=== PATIENT | female | born 1995 | race Caucasian/White ===

== ENCOUNTER 2021-06-01 12:52 | Emergency (ER) | payer OTHER ==
[2021-06-01 13:06] VITALS: BP 123/90; PULSE 91; TEMP 99.1; BMI 37.3
== END 2021-06-01 16:08 | disposition home or self-care (01) ==
LOC: FER 12:52
DX: M54.50 Low back pain, unspecified (principal); W18.2XXA Fall in (into) shower or empty bathtub, initial encounter
CPT/HCPCS: 72128-TC; 72131-TC; 72192-TC; 73070-TC-LT-FY; 81025; 99285-25

== ENCOUNTER 2021-11-14 09:57 | Emergency (ER) | payer OTHER ==
[2021-11-14 10:18] VITALS: BP 130/85; PULSE 84; TEMP 99.1; BMI 37.3
[2021-11-14] MEDS ORDERED: ACETAMINOPHEN 500 MG TABLET (FP) PO ONE (11:13)
[2021-11-14] MEDS ORDERED: ACETAMINOPHEN 500 MG TABLET (FP) ONE (11:36)
== END 2021-11-14 12:34 | disposition home or self-care (01) ==
LOC: JERFT 09:57
DX: G44.319 Acute post-traumatic headache, not intractable (principal); M54.2 Cervicalgia; V49.50XA Passenger injured in collision with unspecified motor vehicles in traffic accident, initial encounter
CPT/HCPCS: 70450-TC; 72125-TC; 99284-25